=== PATIENT | male | born 1950 | race Caucasian/White ===

== ENCOUNTER 2018-02-01 22:15 | Emergency (ER) | payer MEDICARE, OTHER ==
[2018-02-01] MEDS ORDERED: Acetaminophen/HYDROcodone 325-5 MG Tab PO ONE (22:16)
[2018-02-01] MEDS ORDERED: Ondansetron 4 MG Tab.DIS PO ONE (22:16)
[2018-02-01] MEDS ORDERED: Ondansetron 4 MG/2 ML SDV IVPUSH ONE (22:37)
[2018-02-01] MEDS ORDERED: fentaNYL 100 MCG/2 ML SDV IVPUSH ONE (22:57)
[2018-02-02] MEDS ORDERED: fentaNYL 100 MCG/2 ML SDV IVPUSH ONE (00:03)
[2018-02-02 00:20] VITALS: BP 148/80
--- NOTE | 2018-02-02 00:24 | EDM.PDOC ---
ED HPI GENERAL MEDICAL PROBLEM - General Chief Complaint: Chemical Exposure Stated Complaint: "I drank weed killer" Time Seen by Provider: 02/01/18 22:27 Source of Information: Reports: Patient History Limitations: Reports: No Limitations - History of Present Illness INITIAL COMMENTS - FREE TEXT/NARRATIVE: Phu is a 67 yo male who presents to the ED via private vehicle with concerns of incidentally drinking a small amount of weed killer. He states he drinks powerades frequently and had a bottle with Amine 400 stored in it for his lawn. He admits he usually stores powerades in his basement as him and his both drink them daily. He must have accidentally brought up the bottle with chemical in it and put it in the fridge. He admits it happened just prior to arrival. He only took a little sip to wash down his evening meds. He admits he tried rinsing his mouth immediately. He complains of a burning sensation in his mouth extending all the way down to his stomach. He brought the bottle with him and it appears he likely drank roughly 1/2 to 1 oz. He states he feels nauseated and has been spitting up clear liquids. Phu appears to be anxious but cooperative. Denies any shortness of breath or respiratory distress. - Related Data Allergies Allergy/AdvReac Type Severity Reaction Status Date / Time No Known Allergies Allergy Verified 02/01/18 22:35 Home Meds: Home Meds Lansoprazole [Prevacid] 1 cap PO BID 09/03/15 [History] Multivitamin [Multi-Vitamin Daily] 1 tab PO DAILY 09/03/15 [History] Potassium Chloride [Klor-Con 10] 1 tab PO DAILY 09/03/15 [History] Testosterone Cypionate 1 ml IM ASDIRECTED 09/03/15 [History] atorvaSTATin [Lipitor] 20 mg PO BEDTIME 09/03/15 [History] Celecoxib [CeleBREX] 100 mg PO DAILY 02/01/18 [History] Gabapentin [Neurontin] 300 mg PO BID 02/01/18 [History] Past Medical History HEENT History: Reports: Other (See Below) Other HEENT History: lasik surgery vision correction Cardiovascular History: Reports: High Cholesterol Respiratory History: Reports: None Gastrointestinal History: Reports: Diverticulosis, Other (See Below) Other Gastrointestinal History: hernia surgery 9 months ago. Cholitis: Severe and had to remove all of his colon; has colostomy Genitourinary History: Reports: BPH Musculoskeletal History: Reports: Osteoarthritis, Other (See Below) Other Musculoskeletal History: foot surgery due to broke ball of foot - Past Surgical History Cardiovascular Surgical History: Reports: None GI Surgical History: Reports: Appendectomy, Colostomy, Hernia, Inguinal Musculoskeletal Surgical History: Reports: Knee Replacement Social & Family History - Family History Cardiac: Reports: Hypertension, Other (See Below) Oncologic: Reports: Other (See Below) - Tobacco Use Smoking Status *Q: Never Smoker - Living Situation & Occupation Living situation: Reports: , with Family ED ROS GENERAL - Review of Systems Review Of Systems: ROS reveals no pertinent complaints other than HPI. HEENT: Reports: Throat Pain. Denies: Throat Swelling Respiratory: Denies: Shortness of Breath, Wheezing Cardiovascular: Reports: No Symptoms GI/Abdominal: Reports: No Symptoms. Denies: Difficulty Swallowing (discomfort with swallowing) Skin: Reports: No Symptoms Psychiatric: Reports: Anxiety ED EXAM, BURN/SMOKE INHALATION - Physical Exam Exam: See Below Exam Limited By: No Limitations General Appearance: Alert, Anxious Mouth/Throat: Pharyngeal Erythema (no obvious oral knox. ), Throat Pain, Uvular Edema. No: Muffled Voice, Throat Swelling, Tongue Swelling Head: No Symptoms Neck: No Symptoms, Supple, Non-Tender to Palpation Respiratory: No Respiratory Distress, Lungs Clear, Normal Breath Sounds, No Accessory Muscle Use Cardiovascular: Regular Rate, Rhythm, No Murmur GI/Abdominal: Normal Bowel Sounds, Soft, Tender (mild epigastric tenderness) Neurological: Alert, Oriented Psychiatric: Anxious Skin Exam: Warm, Dry, Intact, Normal Color, No Rash Course - Vital Signs Last Recorded V/S: Last Vital Signs Temp 96.8 F 02/02/18 00:18 Pulse 74 02/02/18 00:18 Resp 16 02/02/18 00:18 BP 148/80 H 02/02/18 00:18 Pulse Ox 94 L 02/02/18 00:18 - Orders/Labs/Meds Meds: Medications Discontinued Medications Generic Name Dose Route Start Last Admin Trade Name Freq PRN Reason Stop Dose Admin Fentanyl 25 mcg 02/01/18 22:57 02/01/18 23:03 Sublimaze IVPUSH 02/01/18 22:58 25 mcg ONETIME ONE Administration Fentanyl 25 mcg 02/02/18 00:03 02/02/18 00:08 Sublimaze IVPUSH 02/02/18 00:04 25 mcg STAT ONE Administration Ondansetron HCl 4 mg 02/01/18 22:37 02/01/18 22:41 Zofran IVPUSH 02/01/18 22:38 4 mg STAT ONE Administration - Re-Assessments/Exams Free Text/Narrative Re-Assessment/Exam: Upon arrival patient appeared to be in stable condition. Able to answer all questions appropriately. Vital signs stable. We immediately contacted poison control. Poison control stated it was a mild to moderate irritant and recommended symptomatic cares. Advise monitoring for a couple hours. They recommended having patient drink water to dilute it. Phu was given 4mg of Zofran for nausea and 25mcg of Fentanyl X 2. Departure - Departure Time of Disposition: 00:40 Disposition: Home, Self-Care 01 Clinical Impression: Chemical burn - Discharge Information Referrals: PCP,Unknown [Primary Care Provider] - Forms: ED Department Discharge Additional Instructions: 1) Zofran 4mg tablet - 1 tablet every 4 hours as needed for nausea 2) [place] 5/325 - 1 tablet every 4-6 hours as needed for pain 3) May take home anti-inflammatory's. 4) Recommend follow up with primary provider tomorrow for reevaluation 5) If symptoms worsen or any concerns tonight, advise returning to ER. - Problem List & Annotations (1) Chemical burn SNOMED Code(s): 103485055, 217056825 Code(s): T30.4 - CORROSION OF UNSPECIFIED BODY REGION, UNSPECIFIED DEGREE Status: Acute Current Visit: Yes - Problem List Review Problem List Initiated/Reviewed/Updated: Yes - Assessment/Plan Plan: We closely monitored patient for a couple hours. Patient did quite well. His symptoms improved during his time in the ER. No further dry heaving and was able to keep water down. Vital signs continued to remain stable. Will discharge home at this time. Patient felt fine and denied any concerns prior to discharge.
[2018-02-02] MEDS ORDERED: Take Home: Acetaminophen/HYDROcodone 325-5 MG, 2 Tab Pack PO ONE (00:51)
[2018-02-02] MEDS ORDERED: Take Home: Ondansetron 4 MG Tab.DIS, 2 Tab Pack PO ONE (00:51)
== END 2018-02-02 01:00 | disposition home or self-care (01) ==
LOC: CC.ED 22:15
DX: T60.3X1A Toxic effect of herbicides and fungicides, accidental (unintentional), initial encounter (principal); T28.5XXA Corrosion of mouth and pharynx, initial encounter; E78.00 Pure hypercholesterolemia, unspecified; Z79.899 Other long term (current) drug therapy
CPT/HCPCS: 96374; 96375; 96376; 99283; A9270; J2405; J3010